=== PATIENT | female | born 1935 | race Caucasian/White ===

== ENCOUNTER → 2016-09-28 | Outpatient (CLI) | payer MEDICARE, BC ==
[~2016-09-28] MED LIST: ASPIRIN 81M81 MG/TA2 PO; ASPIRIN E.C. 8181 MG PO; BENADRYL25 M1 PO; BENAZEPRIL HCL/1 TA2 PO; BP med; CALCIUM 1200 W/1 SGL PO; CARDIZEM CD240 MG PO; DILTIAZEM30 MG PO; FISH OIL1000 MG PO; LOTENSIN HCT 201 TAB PO; LOVASTATIN10 MG PO; METFORMIN ER500 MG PO; METFORMIN500 MG PO; MULTIVITAMIN1 CTB PO; REMERON 15M15 MG/TA1 PO; ZESTORETIC 12.51 TA1 PO
== END ==
LOC: MC.RAD 09:28
DX: Z12.31 Encounter for screening mammogram for malignant neoplasm of breast (principal); D24.2 Benign neoplasm of left breast; D24.1 Benign neoplasm of right breast

== ENCOUNTER → 2016-10-26 | Outpatient (CLI) | payer MEDICARE, BC | LOC: SUN.DIA 10:15 | DX: E11.9 Type 2 diabetes mellitus without complications (principal); Z79.84 Long term (current) use of oral hypoglycemic drugs; E66.9 Obesity, unspecified; Z68.29 Body mass index [BMI] 29.0-29.9, adult; Z71.3 Dietary counseling and surveillance; E78.5 Hyperlipidemia, unspecified; I10 Essential (primary) hypertension; M81.0 Age-related osteoporosis without current pathological fracture ==

== ENCOUNTER → 2017-05-03 | Outpatient (CLI) | payer MEDICARE, BC | LOC: SUN.DIA 10:06 | DX: E11.9 Type 2 diabetes mellitus without complications (principal); E78.5 Hyperlipidemia, unspecified; I10 Essential (primary) hypertension; E66.9 Obesity, unspecified; Z68.29 Body mass index [BMI] 29.0-29.9, adult; Z71.3 Dietary counseling and surveillance | CPT/HCPCS: G0108 ==

== ENCOUNTER → 2017-09-30 | Outpatient (CLI) | payer MEDICARE, BC | LOC: MC.RAD 10:13 | DX: Z12.31 Encounter for screening mammogram for malignant neoplasm of breast (principal) ==

== ENCOUNTER → 2017-11-01 | Outpatient (CLI) | payer MEDICARE, BC | LOC: SUN.DIA 09:10 | DX: E11.9 Type 2 diabetes mellitus without complications (principal); E78.5 Hyperlipidemia, unspecified; I10 Essential (primary) hypertension; E66.9 Obesity, unspecified; Z68.30 Body mass index [BMI] 30.0-30.9, adult; Z71.3 Dietary counseling and surveillance | CPT/HCPCS: G0108 ==

== ENCOUNTER → 2018-03-07 | Outpatient (CLI) | payer MEDICARE, BC | LOC: SUN.DIA 10:10 | DX: E11.9 Type 2 diabetes mellitus without complications (principal); E78.5 Hyperlipidemia, unspecified; I10 Essential (primary) hypertension; E66.9 Obesity, unspecified | CPT/HCPCS: G0108 ==

== ENCOUNTER → 2018-08-08 | Outpatient (CLI) | payer MEDICARE, BC | LOC: SUN.DIA 09:46 | DX: E11.9 Type 2 diabetes mellitus without complications (principal); E78.5 Hyperlipidemia, unspecified; I10 Essential (primary) hypertension; E66.9 Obesity, unspecified | CPT/HCPCS: G0108 ==

== ENCOUNTER → 2019-02-06 | Outpatient (CLI) | payer MEDICARE, BC | LOC: DIA.ED 10:22 | DX: E11.9 Type 2 diabetes mellitus without complications (principal); E78.5 Hyperlipidemia, unspecified; I10 Essential (primary) hypertension; E66.9 Obesity, unspecified | CPT/HCPCS: G0108 ==

== ENCOUNTER → 2020-02-18 | Outpatient (CLI) | payer MEDICARE, BC | LOC: DIA.ED 08:29 | DX: E11.9 Type 2 diabetes mellitus without complications (principal); Z79.84 Long term (current) use of oral hypoglycemic drugs; E78.5 Hyperlipidemia, unspecified; E66.8 Other obesity | CPT/HCPCS: G0270 ==

== ENCOUNTER → 2020-08-11 | Outpatient (CLI) | payer MEDICARE, BC | LOC: DIA.ED 14:26 | DX: E11.9 Type 2 diabetes mellitus without complications (principal); Z79.84 Long term (current) use of oral hypoglycemic drugs; I10 Essential (primary) hypertension; E78.5 Hyperlipidemia, unspecified | CPT/HCPCS: G0270 ==

== ENCOUNTER → 2021-02-09 | Outpatient (CLI) | payer MEDICARE, BC | LOC: DIA.ED 12:34 | DX: E11.9 Type 2 diabetes mellitus without complications (principal); Z79.84 Long term (current) use of oral hypoglycemic drugs; E78.5 Hyperlipidemia, unspecified; I10 Essential (primary) hypertension | CPT/HCPCS: G0270 ==

== ENCOUNTER 2023-07-20 13:17 | Outpatient (CLI) | payer MEDICARE, BC ==
[~2023-07-20] VITALS: Ht 154.9 cm; Wt 75.3 kg
[~2023-07-20 13:17] MED LIST changes: -CALCIUM 1200 W/1 SGL PO; +CALCIUM 600MG+D1 TAB PO; +MULTIPLE VITAMI1 CAP PO; -MULTIVITAMIN1 CTB PO
[2023-07-20] MEDS ORDERED: CARTIA XT240 MG PO (14:06)
[2023-07-20] MEDS ORDERED: GLUCOPHAGE XR500 M1 PO (14:07)
[2023-07-20] MEDS ORDERED: MEVACOR 20M20 MG/TAB PO (14:07)
[2023-07-20] MEDS ORDERED: TIMOLOL MALEATE5 M1 OP (14:08)
[2023-07-20] MEDS ORDERED: DIOVAN 160MG160 MG PO (14:08)
[2023-07-20] MEDS ORDERED: PROLIA60 MG/ML SQ (14:10)
[2023-07-20] MEDS ORDERED: AZO-STANDARD95 MG PO (14:11)
[2023-07-20 14:13] VITALS: BP 147/81; PULSE 81; TEMP 99.3
--- NOTE | 2023-07-20 14:28 | NUR ---
Pt tolerated prolia witout issue. She is assisted out by wheelchair to front entrance.
== END 2023-07-20 14:28 | disposition home or self-care (01) ==
LOC: EUO 13:17
DX: M81.0 Age-related osteoporosis without current pathological fracture (principal)
CPT/HCPCS: J0897